=== PATIENT | male | born 1990 | race African-American/Black ===

== ENCOUNTER 2025-04-17 04:47 | Emergency (ER) | payer OTHER ==
[2025-04-17 04:53] VITALS: PULSE 126; RESP 20; O2SAT 97
== END 2025-04-17 05:14 | disposition left against medical advice (07) ==
LOC: ER 04:47
DX: R41.0 Disorientation, unspecified (principal); Z53.21 Procedure and treatment not carried out due to patient leaving prior to being seen by health care provider